=== PATIENT | female | born 2000 | race Caucasian/White ===

== ENCOUNTER → 2023-10-05 | Outpatient (CLI) | payer OTHER, SELFPAY ==
[2023-10-05 17:20] LABS: Absolute Lymphocyte Count 3.23 X10^3/uL (0.83-4.51); Absolute Neutrophil Count 5.3 X10^3/uL (2.0-7.7); Basophil# 0.07 X10^3/uL; Basophil% 0.7 % (0-1); Eosinophils% 2.1 % (0-5); Hematocrit 43.3 % (37-47); Hemoglobin 13.9 g/dL (12.0-15.0); Lymphocyte # 3.23 X10^3/ul (0.83-4.51); Lymphocyte % 33.8 % (19-41); Mean Corp Hgb Conc 32.1 g/dL (32-36); Mean Corpuscular Hgb 28.3 pg (27.0-32.0); Mean Corpuscular Volume 88.2 fL (81-99); Mean Platelet Vol. 9.6 fl (6.2-12.0); Monocyte# 0.73 X10^3/uL; Monocyte% 7.6 % (0-10); NRBC Flagged by Analyzer 0 % (0-5); Neutrophil % 55.5 % (47-70); Platelet Count 279 K/mm3 (150-450); RBC Distribution Width CV 12.6 % (11.6-14.6); RBC Distribution Width SD 40.7 fl (35.1-43.9); Red Blood Count 4.91 M/mm3 (4.2-5.4); White Blood Count 9.6 K/mm3 (4.4-11.0)
[2023-10-05 18:16] LABS: Vitamin D,25 Hydroxy 7.7 ng/mL
[2023-10-05 18:25] LABS: AST(SGOT) 24 U/L (15-37); Alanine Aminotransfer ALT/SGPT 46 U/L (13-56); Albumin, Serum 3.9 g/dL (3.2-5.0); Alkaline Phosphatase 72 U/L (45-117); Anion Gap 8 (5-15); BUN 13 mg/dL (7-18); BUN/Creat Ratio 12.5 RATIO (10-20); Calcium,Total 9.6 mg/dL (8.5-10.1); Chloride 107 mmol/L (98-107); Creatinine, Serum 1.04 mg/dL (0.55-1.02); EST Glomerular Filtration Rate 68 mL/min (>60); Est Glom Filt Rate - Afr Amer 83 mL/min (>60); Glucose 92 mg/dL (74-106); Protein, Total 7.9 g/dL (6.4-8.2); Sodium Level 141 mmol/L (136-145); Thyroid Stim Hormone (TSH) 4.08 uIU/mL (0.358-3.74)
== END | disposition home or self-care (01) ==
LOC: LAB 16:44
PROVIDERS: PCP Internal Medicine; Referring Provider Internal Medicine; Visit Provider Internal Medicine
DX: F32.1 Major depressive disorder, single episode, moderate (principal)
CPT/HCPCS: 36415; 80053; 82306; 84443; 85025

== ENCOUNTER → 2023-12-24 | Outpatient (CLI) | payer OTHER, SELFPAY ==
[2023-12-28 18:08] LABS: HPV Reflexed? NOT INDICATED
== END | disposition home or self-care (01) ==
LOC: LABSPEC 10:38
PROVIDERS: PCP Internal Medicine; Referring Provider Nurse Practitioner Family; Visit Provider Nurse Practitioner Family
DX: N89.8 Other specified noninflammatory disorders of vagina (principal); Z12.4 Encounter for screening for malignant neoplasm of cervix
CPT/HCPCS: 87070; 87205; 88175; G0145

== ENCOUNTER 2024-03-23 05:59 | Emergency (ER) | payer OTHER, SELFPAY ==
[2024-03-23 06:01] VITALS: BP 182/105; PULSE 131; RESP 18; TEMP 36.8; O2SAT 100; BMI 44.1
--- NOTE | 2024-03-23 06:06 | RAD_ITS ---
EXAM: XR SOFT TISSUE NECK CLINICAL INDICATION: ANTERIOR THORAT PAIN, DYSPHONIA AND FEVER ANTERIOR THORAT PAIN, DYSPHONIA AND FEVER TECHNIQUE: Frontal and lateral views of the soft tissues of the neck. COMPARISON: No relevant prior studies available. FINDINGS: AIRWAY: Unremarkable. Grossly patent. SOFT TISSUES: There is soft tissue prominence at the base of the tongue, probably representing lymphoid hyperplasia. No radiopaque foreign body. No pathologic thickening or enlargement of the epiglottis. RAD/Neck for Soft Tissue IMPRESSION: Soft tissue prominence at the base the tongue probably represents lymphoid hyperplasia. Suggest direct visual inspection to ensure against mucosal lesion. Electronically Signed: Marc Bahena MD at 7:26 EDT Reading Location ID and State: [facility] / [place] , Service support ,
--- NOTE | 2024-03-23 06:09 | EDS_ITS ---
HPI History of Present Illness Chief Complaint: Sore Throat Detail of Chief Complaint: Fever, throat pain, change in voice Informant: patient Onset/Context/Timing Onset: Yesterday Context: Sudden Onset Timing: Continuous Quality: Elevated temperature, throat pain dysphonia Location: Posterior pharynx/throat Current Severity: Mild Maximum Severity: Moderate Worsened by: Swallowing Relieved by: Nothing Associated Symptoms Associated Symptoms: Fever, throat pain, change in voice without respiratory symptoms Narrative Narrative: Patient is a 23-year-old female. She has no significant past medical history. She did have a documented temperature. She does complain of throat pain with change in voice. She denies cough. She denies headache, photophobia or ear pain. There is no history of medic fever, heart murmur or SBE. There is no history of mitral valve prolapse. She has not noted a rash. Patient did take ibuprofen upon awakening. She has had no drooling. She does not have a history of hypertension. Prior similar symptoms: No Recent Illness/Hospitalization: No PFSH PFSH Medical History Migraines Seasonal allergies Home Medications ?Medication ?Instructions ?Recorded ?Last Taken ?Type levonorgestrel 0.15 mg-ethinyl 1 tab PO DAILY 09/01/23 Unknown History estradiol 0.03 mg tablet (Rick (28)) bupropion HCl 150 mg 24 hr tablet, 150 mg PO QAM #30 TABLETS 02/09/24 03/20/24 Rx extended release penicillin V potassium 500 mg 500 mg PO 4X/DAY #40 tabs 03/23/24 Unknown Rx tablet Allergy/AdvReac Type Severity Reaction Status Date / Time No Known Allergies Allergy Unverified 12/24/23 08:51 Family History Grandfather Diabetes type 2 Heart disease Prostate CA Surgical History No pertinent past surgical history Social History adopted: No household members: significant other housing: house current occupational status: employed 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 [employer] Smoking Status: Never smoker Electronic Cigarette Use: not used alcohol intake: current alcohol intake frequency: holidays/special occasions only substance use type: does not use eating out: rarely or never what type of physical activity do you participate in: none seatbelt use: always do you feel safe at home: Yes additional social history: Engaged - 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 ; Denies ear pain or rhinorrhea Cardiovascular Cardiovascular: Denies chest pain or palpitations Respiratory/Chest Respiratory/Chest: Denies cough, dyspnea or dyspnea on exertion Gastrointestinal Gastrointestinal: Denies nausea or vomiting Integumentary Denies rash Neurologic Neurologic: Denies headache(s) Hematologic/Lymphatic Hematologic/Lymphatic: Reports systems reviewed and no addt'l complaints, except as documented EXAM Physical Exam Const Vital Signs: 03/23/24 06:01 Temperature 98.2 F Temperature Source Oral Pulse Rate 131 H Respiratory Rate 18 Blood Pressure 182/105 H Blood Pressure Mean 130 Pulse Ox 100 Oxygen Delivery Method Room Air Positive well nourished and well developed Constitutional Narrative: Patient's blood pressure is elevated. Heart rate is also elevated. She is not febrile nor she tachypneic. General Appearance ED: well developed, NAD and pallor HEENT Reports moist mucous membranes HEENT Narrative: Patient has a slightly edematous uvula. Tonsils are enlarged for age and erythematous. There may be slight exudate noted. There is no displacement of the uvula. Patient does have dysphonia. Eyes PERRL and EOMs intact bilaterally General Eye ED: Negative for pale conjunctiva or scleral icterus Neck no lymphadenopathy, supple and no JVD Resp normal respiratory effort and clear to auscultation bilaterally Cardio regular rhythm, S1 normal heart sound, S2 normal heart sound and no murmurs Rate: tachycardic Extremity normal to inspection General Extremety ED: Negative for edema or tenderness General Extremity: Negative for edema Neuro oriented x3 and CN's II-XII intact bilaterally Sensorium / Orientation: alert Psych mental status grossly normal Skin no rashes or lesions noted, no wounds and skin turgor normal General Skin Exam: pallor; Negative for elasticity normal or jaundice MDM MDM MDM Narrative Medical decision making narrative: Centor score is 2. Will obtain rapid strep. She points of pain in the anterior neck more so than the posterior pharynx we will obtain soft tissue x-ray of the neck to assess for epiglottitis or retropharyngeal abscess. History & Record Review Additional record(s) reviewed:: Prior outpatient record ( Office records for [facility] [employer] visit December 24, 2023 was reviewed. Patient was seen in September for elevated TSH.) Lab Data Lab results narrative: Rapid strep is positive. Patient preferred tablets over injection. Radiography Chest X-Ray - ED: 2 View and Read by ED Physician (Independent reviewed inte rpreted by me as negative for epiglottitis. Is no evidence of a retropharyngeal abscess. There is fullness at the base of the tongue which suggest that she has lingular tonsil involvement.) Diagnostic Testing: Clinical Impression(s) from Imaging Studies Soft Tissue Neck X-Ray 03/23/24 06:06 IMPRESSION: Soft tissue prominence at the base the tongue probably represents lymphoid hyperplasia. Suggest direct visual inspection to ensure against mucosal lesion. 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
[2024-03-23] MEDS: dexAMETHasone 4 MG Tablet 6 MG PO (07:42)
[2024-03-23 07:45] VITALS: BP 128/80; PULSE 77; RESP 19; TEMP 36.7; O2SAT 98
[2024-03-23] MEDS: Penicillin Vk 250 MG Tablet 500 MG PO (07:51)
== END 2024-03-23 07:55 | disposition home or self-care (01) ==
PROVIDERS: Emergency Provider Emergency Medicine; PCP Internal Medicine; Visit Provider Emergency Medicine
DX: J03.00 Acute streptococcal tonsillitis, unspecified (principal); R00.0 Tachycardia, unspecified; R49.0 Dysphonia; R50.9 Fever, unspecified; R03.0 Elevated blood-pressure reading, without diagnosis of hypertension
CPT/HCPCS: 70360; 87651; 99282